=== PATIENT | male | born 1970 | race Two or more races ===

== ENCOUNTER → 2024-04-03 | Outpatient (CLI) | payer MEDICAID, SELFPAY ==
--- NOTE | 2024-04-03 13:30 | XR_ITS ---
Examination: Abdomen sonogram, Limited Date and time of exam: April 03, 2024 1229 hours INDICATIONS: Palpable lump in the umbilical region noticed beginning 11 years ago Technique: Real-time millan scale transabdominal sonographic images of the upper abdomen obtained. Findings: 16 x 9 x 20 cm umbilical hernia, compressible containing bowel IMPRESSION: Large bowel containing umbilical hernia
== END | disposition home or self-care (01) ==
LOC: CDIM 13:06
PROVIDERS: PCP Family Medicine; Referring Provider Physician Assistant; Visit Provider Physician Assistant
DX: K43.6 Other and unspecified ventral hernia with obstruction, without gangrene (principal)
CPT/HCPCS: 76705